=== PATIENT | male | born 1950 | race Caucasian/White ===

== ENCOUNTER → 2016-11-19 | Outpatient (CLI) | payer MEDICARE ==
[~2016-11-19] MED LIST: ASPI81TA21 PO; ATOR-24 PO; ATV1 PO; BISO10TA2 PO; HYDR-5688 PO; LISI-461 PO; LISI-725 PO; METF500T PO; MULTTAB58 PO; PANT1TAB48 PO; VITAMIN B12 PO; ZOLP5TAB6 PO
[2016-11-19 13:30] LABS: BASO % 0.9 %; BASO ABS # 0.04 K/uL (0-0.2); COMPLETE YES; EOS % 3.3 %; HEMATOCRIT 41.8 % (42-52); IG% 0.2 %; LYMPH % 33.7 %; LYMPH ABS # 1.54 K/uL (1.2-3.4); MEAN CELL VOLUME 86.7 fL (80-100); MEAN CORPUSCULAR HEMOGLOBIN 30.7 pg (25-34); MEAN CORPUSCULAR HGB CONC 35.4 g/dl (32-36); MEAN PLATELET VOLUME 9.8 fL (7.4-10.4); NEUT % 49.9 %; PLATELET COUNT 194 K/uL (130-400); RED BLOOD COUNT 4.82 M/uL (4.7-6.1); WHITE BLOOD COUNT 4.57 K/uL (4.8-10.8)
[2016-11-19 13:38] LABS: BLOOD UREA NITROGEN 20 mg/dl (7-18); BUN/CREATININE RATIO 22.2 (10-20); CALCIUM 9.4 mg/dl (8.5-10.1); CARBON DIOXIDE 29 mmol/L (21-32); CHLORIDE 103 mmol/L (98-107); CREATININE 0.91 mg/dl (0.60-1.40); GLUCOSE 123 mg/dl (70-99); POTASSIUM 3.8 mmol/L (3.5-5.1); SODIUM 141 mmol/L (136-145)
[2016-11-19 13:39] LABS: PHOSPHORUS 2.8 mg/dl (2.5-4.9)
[2016-11-19 14:12] LABS: ESTIMATED AVERAGE GLUCOSE 120 mg/dl; HA1C FLAG Normal (Normal)
== END | disposition home or self-care (01) ==
LOC: C.LABMFLN 07:22
PROVIDERS: ATTEND Family Medicine
DX: I25.10 Atherosclerotic heart disease of native coronary artery without angina pectoris (principal); E11.9 Type 2 diabetes mellitus without complications

== ENCOUNTER → 2017-04-29 | Outpatient (CLI) | payer MEDICARE | END | disposition home or self-care (01) | LOC: C.LABMFLN 09:50 | PROVIDERS: ATTEND Urology | DX: N40.1 Benign prostatic hyperplasia with lower urinary tract symptoms (principal) ==

== ENCOUNTER → 2017-06-04 | Outpatient (CLI) | payer MEDICARE ==
[2017-06-04 14:17] LABS: RATIO 4.5 mcg/mg (0-30.0)
[2017-06-04 14:32] LABS: ESTIMATED AVERAGE GLUCOSE 123 mg/dl; HA1C FLAG Normal (Normal)
[2017-06-04 14:33] LABS: ALB/GLOB RATIO 1.4 (0.9-2); ALKALINE PHOSPHATASE 95 U/L (45-117); ALT/SGPT 34 U/L (12-78); AST/SGOT 16 U/L (15-37); BLOOD UREA NITROGEN 15 mg/dl (7-18); BUN/CREATININE RATIO 16.4 (10-20); CALCIUM 8.8 mg/dl (8.5-10.1); CARBON DIOXIDE 30 mmol/L (21-32); CHLORIDE 106 mmol/L (98-107); CHOLESTEROL 127 mg/dl (0-200); CHOLESTEROL/HDL RATIO 3.3; CREATININE 0.89 mg/dl (0.60-1.40); GLUCOSE 132 mg/dl (70-99); HDL CHOLESTEROL 39 mg/dl; LDL CHOLESTEROL CALCULATED 65 mg/dl; SODIUM 140 mmol/L (136-145); TRIGLYCERIDES 114 mg/dl (0-150); VERY LOW DENSITY LIPOPROT CALC 23 mg/dl
== END | disposition home or self-care (01) ==
LOC: C.LABMFLN 09:24
PROVIDERS: ATTEND Family Medicine
DX: E11.9 Type 2 diabetes mellitus without complications (principal); E78.5 Hyperlipidemia, unspecified

== ENCOUNTER → 2017-12-18 | Outpatient (CLI) | payer OTHER ==
[~2017-12-18] MED LIST changes: +PANT1TAB3 PO; -PANT1TAB48 PO
== END | disposition home or self-care (01) ==
LOC: C.LABMFLN 08:53
PROVIDERS: ATTEND Family Medicine
DX: E11.9 Type 2 diabetes mellitus without complications (principal)